=== PATIENT | female | born 1970 | race Caucasian/White ===

== ENCOUNTER 2019-08-12 15:10 | Outpatient (CLI) | payer BC ==
--- NOTE | 2019-08-12 15:36 | ULT ---
US Thyroid STANDARD History: Thyroid nodule Comparison: None. Findings: Real-time grayscale and color evaluation of the thyroid was performed. Background vascularity is normal. No abnormal thyroid nodule. Small sub-5 mm bilateral colloid cysts. Isthmus measures 2 mm in AP dimension. Right lobe measures 4.3 x 1.2 x 1.4 cm and the left lobe measu res 3.5 x 1.3 x 1.1 cm. Impression: Small bilateral colloid cysts. No abnormal suspicious nodule requiring aspiration per [facility] ADS criteria.
--- NOTE | 2019-08-12 15:56 | ULT ---
Exam: Transabdominal and endovaginal pelvic ultrasound HISTORY:Previous hysterectomy with removal of the uterus. Ovaries are still present. COMPARISON: None TECHNIQUE: Transabdominal and endovaginal imaging of the pelvis is performed. Ovaries are interrogate d with grayscale, color flow, Doppler imaging and spectral wave form analysis FINDINGS: Uterus: Surgically absent. Free fluid: None Right ovary: Not appreciated Left ovary: Not appreciated IMPRESSION: Unremarkable exam. Neither ovary is appreciated. No evidence of free fluid
== END 2019-08-12 15:11 | disposition home or self-care (01) ==
LOC: BICULT 15:10
DX: E04.1 Nontoxic single thyroid nodule (principal)
CPT/HCPCS: 76536; 76856

== ENCOUNTER 2019-11-05 08:51 | Outpatient (CLI) | payer BC ==
--- NOTE | 2019-11-05 11:41 | MRI ---
MRI LEFT SHOULDER PERFORMED WITHOUT CONTRAST ENHANCEMENT: Date: 11/05/2019 HISTORY: Patient injured shoulder several weeks ago and has been having pain ever since. 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 There is a full thickness tear involving the ju nction of the posterior aspect of the supra and anterior portion of the infraspinatus tendons. The te ar appears to more predominantly involve the infraspinatus tendon. The anterior half of the supraspin atus tendon appears intact. Extending more posteriorly towards the posterior fibers, there is somewha t differential retraction of the articular and bursal-sided fibers. Maximum degree of retraction is a pproximately 1.9 cm, somewhat difficult to estimate given the areas at the conjoined portion of the t endon. There does appear to be associated delamination with some fluid density extending into the mus culotendinous junction of the infraspinatus muscle. There is also edema change of the musculotendinou s junction which suggests there is some associated muscle strain. The subscapularis muscle and tendon are intact. The biceps tendon is normal in position. The bicipital labral complex shows slightly truncated appearance to the posterior superior labrum. Th is may be more chronic in nature. There are some arthritic changes of the glenohumeral joint space. T he inferior glenohumeral ligamentous and labral complex appear unremarkable. There is some mild infraspinatus muscle atrophy. IMPRESSION: Full thickness tear which is at the junction of the supra and infraspinatus tendons. It is difficult to estimate the exact size of the full thickness component of the tear, but probably approximately 1. 3-1.4 cm in AP dimension. There is a mild degree of atrophy of the infraspinatus muscle. POS: [facility]
== END 2019-11-05 08:52 | disposition home or self-care (01) ==
LOC: SCSMRI 08:51
PROVIDERS: ATTEND Orthopaedic Surgery
DX: S46.002A Unspecified injury of muscle(s) and tendon(s) of the rotator cuff of left shoulder, initial encounter (principal); S46.012A Strain of muscle(s) and tendon(s) of the rotator cuff of left shoulder, initial encounter; M62.512 Muscle wasting and atrophy, not elsewhere classified, left shoulder